=== PATIENT | female | born 1990 | race African-American/Black ===

== ENCOUNTER 2020-12-19 13:23 | Emergency (ER) | payer MEDICAID, OTHER ==
[~2020-12-19] VITALS: Ht 177.8 cm; Wt 95.5 kg
[~2020-12-19 13:23] MED LIST: FLUT1DIS3 IH; PREN-55 PO
[2020-12-19 14:27] VITALS: BP 119/69
== END 2020-12-19 15:18 | disposition home or self-care (01) ==
LOC: EMS 13:27
DX: N93.9 Abnormal uterine and vaginal bleeding, unspecified (principal); Z32.02 Encounter for pregnancy test, result negative; J45.909 Unspecified asthma, uncomplicated; Z79.899 Other long term (current) drug therapy; F12.90 Cannabis use, unspecified, uncomplicated
CPT/HCPCS: 99281; 99282; Z7502